=== PATIENT | female | born 1940 | race Caucasian/White ===

== ENCOUNTER 2023-07-04 23:48 | Emergency (ER) | payer MEDICAID ==
[~2023-07-04] VITALS: Ht 137.2 cm; Wt 44.0 kg
[2023-07-05 00:03] VITALS: BP 144/58; O2SAT 96
[2023-07-05] MEDS ORDERED: TETANUS, DIPHTHERIA, PERTUSSIS VAC/PF 0.5ML (>10YR OLD) IM ONE (03:00)
[2023-07-05 05:17] VITALS: PULSE 66; RESP 16; TEMP 98.2
== END 2023-07-05 05:18 | disposition home or self-care (01) ==
LOC: ER 23:48
DX: S01.91XA Laceration without foreign body of unspecified part of head, initial encounter (principal); W18.39XA Other fall on same level, initial encounter; Y93.89 Activity, other specified; Y92.89 Other specified places as the place of occurrence of the external cause; Y99.8 Other external cause status
CPT/HCPCS: 12013; 99285; 70450; 90715; 90471; Z7610 ×3